=== PATIENT | male | born 1935 | race Caucasian/White ===

== ENCOUNTER 2023-02-26 11:10 | Observation (INO) | payer MEDICARE, OTHER ==
[2023-02-26] VITALS (8 sets, daily range): BP systolic 147–179; BP diastolic 72–78; PULSE 57–74; RESP 16–23; TEMP 97.5–98.4; O2SAT 94–98
[~2023-02-26] VITALS: Ht 172.7 cm; Wt 79.8 kg
[2023-02-26 11:48] LABS: BASOPHILS % 0.5 % (0.0-1.0); EOSINOPHILS # (AUTO) 0.1 (0.0-0.4); EOSINOPHILS % 1.4 % (0.0-6.0); HEMOGLOBIN 12.7 g/dL (14.0-18.0); LYMPHOCYTES # (AUTO) 1.2 (1.0-3.2); LYMPHOCYTES % 20.1 % (18.0-39.1); MEAN CORPUSCULAR HGB CONC 33.4 g/dL (31-35); MEAN CORPUSCULAR VOLUME 92.7 fL (81-99); MONOCYTES # (AUTO) 0.4 (0.2-0.8); MONOCYTES % 7.5 % (4.4-11.3); NEUTROPHILS % 70.3 % (38.7-80.0); PLATELET COUNT 146 x10e3/uL (140-360); RED CELL DISTRIBUTION WIDTH 12.4 % (11.7-14.4)
[2023-02-26 12:09] LABS: ALBUMIN 3.9 g/dL (3.5-5.0); ALBUMIN/GLOBULIN RATIO 1.3 (0.8-2.0); ANION GAP 12.9 mmol/L (8-16); CALCIUM 9.7 mg/dL (8.4-10.2); CREATININE, SERUM 1.28 mg/dL (0.72-1.25); POTASSIUM 3.9 mmol/L (3.5-5.1)
[2023-02-26 13:24] LABS: CLARITY,URINE CLOUDY (CLEAR); COLOR,URINE YELLOW (YELLOW); KETONES,URINE NEGATIVE (NEGATIVE); LEUKOCYTE ESTERASE ,URINE LARGE (NEGATIVE); NITRITE,URINE NEGATIVE (NEGATIVE); PROTEIN,URINE DIPSTICK NEGATIVE (NEGATIVE); URINE UROBILINOGEN 0.2 mg/dL (0.2 - 1)
[2023-02-26 13:37] LABS: WBC,URINE (MAN) >50 /HPF (0-5)
[2023-02-26 13:38] LABS: BACTERIA,URINE FEW /HPF
[2023-02-26] MEDS ORDERED: ASPIRIN 81 MG CHEW TAB PO ONE (14:00)
[2023-02-26] MEDS ORDERED: SOLIFENACIN SUCC5 MG PO (17:47)
[2023-02-26] MEDS ORDERED: LOPRESSOR25 MG PO (17:47)
[2023-02-26] MEDS ORDERED: OXYBUTYNIN CHLO10 MG PO (17:47)
[2023-02-26] MEDS ORDERED: ALENDRONATE SOD70 MG PO (17:47)
[2023-02-26] MEDS ORDERED: METFORMIN HCL500 MG PO (17:47)
[2023-02-26] MEDS ORDERED: ROSUVASTATIN CAL5 MG PO (17:47)
[2023-02-26] MEDS ORDERED: ENALAPRIL MALEA20 MG PO (17:47)
[2023-02-26] MEDS ORDERED: OMEPRAZOLE40 MG PO (17:47)
[2023-02-26] MEDS ORDERED: MECLIZINE HCL12.5 MG PO (17:47)
[2023-02-26] MEDS ORDERED: TRIAMTERENE-HCTZ1 EA PO (17:47)
[2023-02-26] MEDS ORDERED: MECLIZINE HCL 12.5 MG TAB PO PRN (19:45)
[2023-02-26] MEDS ORDERED: ONDANSETRON HCL INJ 2MG/ML 2ML 2 MG/ML VIAL IV PRN (19:45)
[2023-02-26] MEDS ORDERED: ACETAMINOPHEN 325 MG TAB PO PRN (19:45)
[2023-02-26] MEDS ORDERED: BISACODYL 5 MG TAB EC PO PRN (19:45)
[2023-02-26] MEDS ORDERED: METOPROLOL TARTRATE 25 MG TAB PO SCH (20:00)
[2023-02-26] MEDS: CRESTOR 10MG PO SCH (22:07)
[2023-02-27] VITALS (8 sets, daily range): BP systolic 132–162; BP diastolic 69–82; PULSE 54–68; RESP 16–23; TEMP 97.5–98.5; O2SAT 94–98
[2023-02-27] MEDS ORDERED: DEXTROSE 50% SYRINGE 50 ML IV PRN (00:15)
[2023-02-27 04:53] LABS: BASOPHILS % 0.6 % (0.0-1.0); EOSINOPHILS # (AUTO) 0.1 (0.0-0.4); EOSINOPHILS % 2.5 % (0.0-6.0); HEMATOCRIT 35.4 % (38.2-49.6); HEMOGLOBIN 11.9 g/dL (14.0-18.0); LYMPHOCYTES # (AUTO) 1.5 (1.0-3.2); LYMPHOCYTES % 28.7 % (18.0-39.1); MEAN CORPUSCULAR HEMOGLOBIN 31.6 pg (28-32); MEAN CORPUSCULAR HGB CONC 33.6 g/dL (31-35); MEAN CORPUSCULAR VOLUME 93.9 fL (81-99); MONOCYTES # (AUTO) 0.5 (0.2-0.8); MONOCYTES % 9.1 % (4.4-11.3); NEUTROPHILS % 58.7 % (38.7-80.0); PLATELET COUNT 126 x10e3/uL (140-360); RED BLOOD COUNT 3.77 x10e6/uL (4.3-5.7); RED CELL DISTRIBUTION WIDTH 12.1 % (11.7-14.4)
[2023-02-27 05:07] LABS: ANION GAP 13.3 mmol/L (8-16); CALCIUM 9.3 mg/dL (8.4-10.2); CREATININE, SERUM 0.95 mg/dL (0.72-1.25); POTASSIUM 3.3 mmol/L (3.5-5.1)
[2023-02-27 05:47] LABS: CHOL/HDL RATIO 2.5 (3.9-4.7); MAGNESIUM 1.4 MG/DL (1.3-2.1)
[2023-02-27 06:07] LABS: THYROID STIMULATING HORMONE 0.774 uIU/mL (0.350-4.940)
[2023-02-27] MEDS: PANTOPRAZOLE SOD 40 MG TABEC PO SCH (07:30)
[2023-02-27] MEDS: INSULIN REGULAR, HUMAN 100 UNIT/1 ML SQ SCH ×4 (07:30→21:23)
[2023-02-27] MEDS ORDERED: HYDRALAZINE HCL 20 MG/ML VIAL IV PRN (08:30)
[2023-02-27] MEDS: OXYBUTYNIN CHLORIDE XL 5 MG TAB PO SCH (08:54)
[2023-02-27] MEDS: ENALAPRIL MALEATE 10 MG TAB PO SCH (08:56)
[2023-02-27] MEDS: MUPIROCIN 2% OINT 22 GM TUBE TOP SCH (12:00)
[2023-02-27] MEDS ORDERED: POTASSIUM CHLORIDE 10MEQ EA PO ONE (15:15)
[2023-02-27] MEDS: CRESTOR 10MG PO SCH (20:19)
[2023-02-28] VITALS (8 sets, daily range): BP systolic 125–172; BP diastolic 66–87; PULSE 63–84; RESP 17–19; TEMP 97.5–98.3; O2SAT 95–99
[2023-02-28] MEDS: INSULIN REGULAR, HUMAN 100 UNIT/1 ML SQ SCH ×4 (07:30→20:27)
[2023-02-28] MEDS: MUPIROCIN 2% OINT 22 GM TUBE TOP SCH (09:00)
[2023-02-28] MEDS: ENALAPRIL MALEATE 10 MG TAB PO SCH (09:52)
[2023-02-28] MEDS: PANTOPRAZOLE SOD 40 MG TABEC PO SCH (09:52)
[2023-02-28] MEDS: OXYBUTYNIN CHLORIDE XL 5 MG TAB PO SCH (09:53)
[2023-02-28] MEDS ORDERED: GADOBENATE DIMEGLUMINE 1 ML IV ONE (11:33)
[2023-02-28] MEDS ORDERED: MUPIROCIN 2% OINT 22 GM TUBE TOP SCH (21:00)
[2023-02-28] MEDS: CRESTOR 10MG PO SCH (22:25)
[2023-03-01 00:17] VITALS: BP 142/75; PULSE 70; RESP 18; TEMP 97.5; O2SAT 96
[2023-03-01 04:41] VITALS: BP 125/70; PULSE 70; RESP 18; TEMP 97.7; O2SAT 94
[2023-03-01 05:40] LABS: BASOPHILS % 0.3 % (0.0-1.0); EOSINOPHILS # (AUTO) 0.2 (0.0-0.4); EOSINOPHILS % 2.7 % (0.0-6.0); HEMATOCRIT 36.4 % (38.2-49.6); HEMOGLOBIN 12.3 g/dL (14.0-18.0); LYMPHOCYTES # (AUTO) 2.1 (1.0-3.2); LYMPHOCYTES % 33.3 % (18.0-39.1); MEAN CORPUSCULAR HEMOGLOBIN 31.2 pg (28-32); MEAN CORPUSCULAR HGB CONC 33.8 g/dL (31-35); MEAN CORPUSCULAR VOLUME 92.4 fL (81-99); MONOCYTES # (AUTO) 0.5 (0.2-0.8); MONOCYTES % 8.7 % (4.4-11.3); NEUTROPHILS # (AUTO) 3.4 (2.1-6.9); NEUTROPHILS % 54.8 % (38.7-80.0); PLATELET COUNT 91 x10e3/uL (140-360); RED BLOOD COUNT 3.94 x10e6/uL (4.3-5.7); RED CELL DISTRIBUTION WIDTH 12.4 % (11.7-14.4)
[2023-03-01 05:47] LABS: ANION GAP 13.5 mmol/L (8-16); CALCIUM 9.3 mg/dL (8.4-10.2); CREATININE, SERUM 1.13 mg/dL (0.72-1.25); POTASSIUM 3.5 mmol/L (3.5-5.1)
[2023-03-01] MEDS: INSULIN REGULAR, HUMAN 100 UNIT/1 ML SQ SCH ×2 (07:30→12:20)
[2023-03-01 08:09] VITALS: BP 165/79; PULSE 63; RESP 18; TEMP 97.5; O2SAT 97
[2023-03-01] MEDS: PANTOPRAZOLE SOD 40 MG TABEC PO SCH (09:26)
[2023-03-01] MEDS: OXYBUTYNIN CHLORIDE XL 5 MG TAB PO SCH (09:26)
[2023-03-01] MEDS: ENALAPRIL MALEATE 10 MG TAB PO SCH (09:27)
[2023-03-01 09:44] VITALS: BP 165/79; PULSE 63; RESP 18; TEMP 97.5; O2SAT 97
[2023-03-01 11:41] VITALS: BP 128/74; PULSE 95; RESP 20; TEMP 97.6; O2SAT 80
[2023-03-01] MEDS ORDERED: NITROFURANTOIN MACROCRYSTALS 100 MG CAP PO ONE (12:15)
[2023-03-01] MEDS ORDERED: MACROBID 100 M100 MG PO (13:13)
[2023-03-01] MEDS ORDERED: ONDANSETRON HCL 4 MG ORAL DISINTEGRATING TAB PO PRN (14:15)
== END 2023-03-01 13:30 | disposition home or self-care (01) ==
LOC: ER 11:18 → EDBD 11:18 → ERHOLD 14:09 → MED/SURG 16:17
PROVIDERS: ADMIT Internal Medicine; ATTEND Internal Medicine
DX: R55 Syncope and collapse (principal); R42 Dizziness and giddiness; I48.20 Chronic atrial fibrillation, unspecified; Z79.01 Long term (current) use of anticoagulants; E11.65 Type 2 diabetes mellitus with hyperglycemia; I11.9 Hypertensive heart disease without heart failure; E78.5 Hyperlipidemia, unspecified; I95.9 Hypotension, unspecified; I95.1 Orthostatic hypotension; N39.0 Urinary tract infection, site not specified; B96.20 Unspecified Escherichia coli [E. coli] as the cause of diseases classified elsewhere; Z16.24 Resistance to multiple antibiotics; Z79.4 Long term (current) use of insulin; K21.9 Gastro-esophageal reflux disease without esophagitis; Z85.038 Personal history of other malignant neoplasm of large intestine
CPT/HCPCS: 0223U; 36415 ×4; 70450; 70553; 71045; 73130; 80048 ×2; 80053; 80061; 81001; 82550 ×2; 82948 ×4; 83036; 83735; 84443; 84484 ×2; 85025 ×3; 87086; 87186; 93005; 93306; 93880; 94799; 95819; 97116 ×3; 97161; 97530; 99252; 99284; G0378 ×4; J0692 ×2; J0696 ×3; S0164 ×3